=== PATIENT | female | born 1955 | race Caucasian/White ===

== ENCOUNTER 2021-01-02 18:41 | Observation (INO) ==
[2021-01-02] MEDS ORDERED: Ondansetron ODT 4 MG TAB.RAPDIS SL STA (22:17)
[2021-01-02] MEDS ORDERED: diazePAM 2 MG TABLET PO STA (22:17)
[2021-01-02] MEDS ORDERED: Isovue-370 500 ML BOTTLE IVP ONE (22:37)
[2021-01-02 23:12] LABS: Bilirubin,Urine Negative (Negative); Blood,Urine Negative (Negative); Clarity,Urine Clear (Clear); Color,Urine Light-Yellow (Yellow); Glucose,Urine (UA) Normal (Normal); Hyaline Casts,Urine Few per lpf (None Seen); Ketones,Urine Negative (Negative); Leukocyte Esterase,Urine Trace (Negative); Mucus,Urine Few per lpf (None-Few); Nitrite,Urine Negative (Negative); PH,Urine 5.5 pH Units (5.0-8.0); Protein,Urine Trace mg/dL (Neg-Trace); RBC,Urine 0-3 per hpf (0-3); Specific Gravity,Urine 1.019 (1.010-1.025); Squamous Epithelial Cell,Urine Few per hpf (None-Few); Urobilinogen,Urine Normal (Normal); WBC,Urine 0-3 per hpf (0-3)
[2021-01-02 23:34] LABS: Basophils # 0.1 K/mcL (0.0-0.2); Basophils % 0.7 %; Eosinophils # 0.1 K/mcL (0.0-0.6); Eosinophils % 0.5 %; Hematocrit 48.5 % (35.3-44.9); Hemoglobin 16.1 g/dL (11.5-15.4); Immature Granulocytes % 0.3 % (0-4); Lymphocytes # 2.8 K/mcL (0.6-4.6); Lymphocytes % 19.6 %; Mean Corpuscular HGB Conc 33.2 g/dL (31.6-35.5); Mean Corpuscular Hemoglobin 30.5 pg (28.0-33.3); Mean Corpuscular Volume 91.9 fL (83.0-100.0); Mean Platelet Volume 10.2 fL (9.4-12.4); Monocytes # 0.7 K/mcL (0.0-1.3); Monocytes % 4.8 %; Neutrophils # 10.7 K/mcL (1.6-8.9); Platelet Count 318 K/mcL (140-400); Red Blood Count 5.28 M/mcL (3.82-4.97); Segmented Neutrophils % 74.1 %; White Blood Count 14.4 K/mcL (4.3-11.1)
[2021-01-02 23:39] LABS: Prothrombin Time 11.6 Seconds (9.4-12.1)
[2021-01-02 23:42] LABS: Activated Partial Thrombo Time 34.3 Seconds (26.0-36.0)
[2021-01-02 23:47] LABS: Alanine Aminotransferase 16 Units/L (7-52); Albumin 5.1 g/dL (3.5-5.7); Albumin/Globulin Ratio 1.5 (1.1-2.2); Alkaline Phosphatase 90 Units/L (34-104); Aspartate Amino Transferase 13 Units/L (13-39); BUN/Creatinine Ratio 10 (6-26); Bilirubin,Total 0.4 mg/dL (0.3-1.0); Blood Urea Nitrogen 12 mg/dL (8-23); Calcium 10.2 mg/dL (8.6-10.3); Carbon Dioxide 21 mEq/L (23-29); Chloride 106 mEq/L (98-107); Globulin 3.3 g/dL (2.4-3.5); Glucose 102 mg/dL (70-105); Osmolality,Calculated 286 (280-300); Potassium 3.9 mEq/L (3.5-5.1); Sodium 138 mEq/L (136-145); Total Protein 8.4 g/dL (6.4-8.9); eGFR For African Americans 52 (> 60); eGFR For Non-African Americans 43 (> 60)
[2021-01-03 00:24] LABS: Troponin I < 0.03 ng/mL (< 0.04)
[2021-01-03] MEDS ORDERED: Naloxone 0.4 MG/ML INJ IVP PRN (04:52)
[2021-01-03] MEDS ORDERED: Melatonin 3 MG TABLET PO PRN (04:52)
[2021-01-03] MEDS ORDERED: Ondansetron ODT 4 MG TAB.RAPDIS SL PRN (04:52)
[2021-01-03] MEDS ORDERED: Acetaminophen 325 MG TABLET PO PRN (04:52)
[2021-01-03] MEDS: 0.9 % Sodium Chloride 1,000 ML IVC SCH ×2 (09:24→13:00)
[2021-01-03 09:40] LABS: Basophils # 0.1 K/mcL (0.0-0.2); Basophils % 0.6 %; Eosinophils # 0.1 K/mcL (0.0-0.6); Eosinophils % 0.9 %; Hematocrit 41.5 % (35.3-44.9); Immature Granulocytes % 0.4 % (0-4); Lymphocytes # 2.6 K/mcL (0.6-4.6); Lymphocytes % 24.1 %; Mean Corpuscular Hemoglobin 30.5 pg (28.0-33.3); Mean Corpuscular Volume 92.4 fL (83.0-100.0); Mean Platelet Volume 10.3 fL (9.4-12.4); Monocytes # 0.7 K/mcL (0.0-1.3); Monocytes % 6.3 %; Neutrophils # 7.2 K/mcL (1.6-8.9); Platelet Count 264 K/mcL (140-400); Red Blood Count 4.49 M/mcL (3.82-4.97); Red Cell Distribution Width 13.1 % (11.5-14.5); Segmented Neutrophils % 67.7 %; White Blood Count 10.6 K/mcL (4.3-11.1)
[2021-01-03 09:49] LABS: Hemoglobin 13.7 g/dL (11.5-15.4)
[2021-01-03 10:40] LABS: BUN/Creatinine Ratio 11 (6-26); Blood Urea Nitrogen 13 mg/dL (8-23); Calcium 9.7 mg/dL (8.6-10.3); Carbon Dioxide 23 mEq/L (23-29); Chloride 105 mEq/L (98-107); Glucose 108 mg/dL (70-105); Magnesium 2.1 mg/dL (1.6-2.6); Osmolality,Calculated 285 (280-300); Phosphorous 3.2 mg/dL (2.7-4.5); Potassium 3.4 mEq/L (3.5-5.1); Sodium 137 mEq/L (136-145); Troponin I < 0.03 ng/mL (< 0.04); eGFR For African Americans 55 (> 60); eGFR For Non-African Americans 45 (> 60)
[2021-01-04] MEDS ORDERED: Mirtazapine 15 MG TABLET PO SCH (00:45)
[2021-01-04] MEDS: Topiramate 100 MG TABLET PO SCH ×2 (01:23→08:06)
[2021-01-04 02:49] LABS: Basophils # 0.1 K/mcL (0.0-0.2); Eosinophils # 0.2 K/mcL (0.0-0.6); Eosinophils % 1.7 %; Hematocrit 38.2 % (35.3-44.9); Hemoglobin 12.6 g/dL (11.5-15.4); Immature Granulocytes % 0.3 % (0-4); Lymphocytes # 3.1 K/mcL (0.6-4.6); Lymphocytes % 34.8 %; Mean Corpuscular Hemoglobin 30.7 pg (28.0-33.3); Mean Corpuscular Volume 93.2 fL (83.0-100.0); Mean Platelet Volume 10.2 fL (9.4-12.4); Monocytes # 0.6 K/mcL (0.0-1.3); Monocytes % 7.2 %; Neutrophils # 4.9 K/mcL (1.6-8.9); Platelet Count 234 K/mcL (140-400); Red Cell Distribution Width 12.9 % (11.5-14.5); White Blood Count 8.9 K/mcL (4.3-11.1)
[2021-01-04 03:12] LABS: Potassium 4.1 mEq/L (3.5-5.1)
[2021-01-04 07:42] VITALS: BP 135/77; PULSE 70; TEMP 98.1; O2SAT 96
[2021-01-04] MEDS ORDERED: Venlafaxine XR (24 HR) 150 MG CAP.ER.24H PO SCH (09:00)
[2021-01-04] MEDS ORDERED: *HR* LORazepam 1 MG TABLET PO SCH (09:00)
[2021-01-04] MEDS ORDERED: rOPINIRole 1 MG TABLET PO SCH (09:00)
[2021-01-05] MEDS ORDERED: Ergocalciferol (VIT D2) 50,000 UNIT (1.25MG) CAP PO SCH (09:00)
[2021-01-28] MEDS ORDERED: Cyanocobalamin (B-12) 1,000 MCG/ML VIAL IM SCH (08:00)
== END 2021-01-04 11:02 | disposition home or self-care (01) ==
LOC: 3BNU 18:41 → EMEROOARM 18:41 → 3BNU 01-03 11:35
PROVIDERS: ADMIT Internal Medicine; ATTEND Internal Medicine